=== PATIENT | female | born 1995 | race Hispanic/Latino ===

== ENCOUNTER 2017-07-27 05:03 | Outpatient (CLI) | payer OTHER ==
[~2017-07-27] VITALS: Ht 152.4 cm; Wt 71.4 kg
[2017-07-27 05:14] VITALS: BP 122/77
[2017-07-27] MEDS ORDERED: LR 1,000 ML IV ONE (05:30)
[2017-07-27] MEDS ORDERED: ONDANSETRON 4MG/2ML VIAL (J2405) IV ONE (05:30)
== END 2017-07-27 07:15 | disposition home or self-care (01) ==
LOC: M LDO 05:03
PROVIDERS: ATTEND Obstetrics & Gynecology
DX: O99.89 Other specified diseases and conditions complicating pregnancy, childbirth and the puerperium (principal); Z3A.24 24 weeks gestation of pregnancy; R11.2 Nausea with vomiting, unspecified; R19.7 Diarrhea, unspecified; Z88.0 Allergy status to penicillin
CPT/HCPCS: 59025; 96365; J2405